=== PATIENT | male | born 1975 | race Asian ===

== ENCOUNTER 2020-03-06 16:41 | Emergency (ER) | payer OTHER, SELFPAY ==
--- NOTE | ~2020-03-06 | XR_ITS ---
EXAMINATION: XR foot LT min 3V DATE: 03/06/2020 17:27 INDICATION: Swelling and pain of the great toe TECHNIQUE: Dorsoplantar, lateral, and 2 oblique views of the left foot were obtained. COMPARISON: None. FINDINGS: No fracture is identified. 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 There appear to be small cortical erosions in the medial aspects of the first metatarsal and fir st proximal phalanx and metatarsophalangeal joint as well as at the distal aspect of the first proxim al phalanx. Medial soft tissue swelling is seen near the first metatarsophalangeal joint. IMPRESSION: 1. Osseous and soft tissue changes near the first metatarsophalangeal joint, consistent with gout. No acute osseous abnormality. Reviewed, dictated and finalized at location A. IMPRESSION: 1. Osseous and soft tissue changes near the first metatarsophalangeal joint, co nsistent with gout. No acute osseous abnormality.
--- NOTE | ~2020-03-06 | XR_ITS ---
EXAMINATION: XR foot RT min 3V DATE: 03/06/2020 17:27 INDICATION: Right great toe and foot pain TECHNIQUE: Dorsoplantar, lateral, and 2 oblique views of the right foot were obtained. COMPARISON: None. FINDINGS: No fracture is identified. 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 There are cortical erosions in the medial aspects of the first metatarsal and first proximal pha lanx at the metatarsophalangeal joint. There also appear to be subtle erosions in the anterior aspect of the distal tibia on the lateral view Medial soft tissue swelling is seen near the first metatarso phalangeal joint. IMPRESSION: 1. Osseous and soft tissue changes near the first metatarsophalangeal joint, and possibly distal tibi a, consistent with gout. No acute osseous abnormality. Reviewed, dictated and finalized at location A. IMPRESSION: 1. Osseous and soft tissue changes near the first metatarsophalangeal joint, an d possibly distal tibia, consistent with gout. No acute osseous abnormality.
[2020-03-06 16:52] VITALS: BP 137/95; PULSE 74; RESP 18; TEMP 36.9; O2SAT 96
[2020-03-06 17:27] LABS: Basophils Percent Auto 0.4 % (0.2-1.2); Eosinophils Absolute Auto 0.1 K/mm3 (0-0.3); Eosinophils Percent Auto 1.6 % (0-4.4); Hematocrit 43.8 % (42.0-52.0); Hemoglobin 15.1 g/dL (14.0-18.0); Immature Granulocyte Absolute 0.01 K/mm3 (0.00-0.031); Immature Granulocyte Percent A 0.1 % (0-0.5); Lymphocytes Absolute Auto 2.13 K/mm3 (0.9-3.2); Lymphocytes Percent Auto 30.5 % (18.3-44.2); Mean Corpuscular HGB Conc 34.5 g/dl (32-36); Mean Corpuscular Hemoglobin 30.3 pg (26-34); Mean Platelet Volume 9.3 fl (7.4-10.4); Monocytes Absolute Auto 0.6 K/mm3 (0.1-0.6); Monocytes Percent Auto 8.6 % (2.6-8.5); Neutrophils Absolute Auto 4.1 K/mm3 (1.3-6.7); Neutrophils Percent Auto 58.8 % (45.5-73.1); Platelet Count Result 314 k/mm3 (150-375); Red Blood Count 4.98 M/mm3 (4.6-6.20); Red Cell Distribution Width 11.6 % (11.5-14.5)
[2020-03-06] MEDS: KETOROLAC 30 MG/ML VIAL (*BKC) IV PUSH (17:30)
[2020-03-06 17:38] LABS: Blood Urea Nitrogen 15 mg/dL (9-20); Calcium 9.5 mg/dL (8.4-10.2); Carbon Dioxide 28 mmol/L (22-30); Chloride 100 mmol/L (98-107); Estimated CRCL calculation 76 ml/min; Estimated Glomerular Filt Rate > 60; Glucose 109 mg/dL (75-110); Potassium 4.2 mmol/L (3.4-5.0); Sodium 138 mmol/L (137-145); Uric Acid 6.6 mg/dL (3.5-8.5)
[2020-03-06 17:49] LABS: Erythrocyte Sedimentation Rate 24 mm/hr (0-20)
--- NOTE | 2020-03-06 17:55 | ED.GENADULT ---
HPI - General Adult General Chief complaint: Extremity Injury, Lower Stated complaint: bilat foot pain Time Seen by Provider: 03/06/20 16:53 History of Present Illness HPI narrative: Patient is a 44-year-old male who presents ER with bilateral foot/great toe pain. Reports he was running last week and felt pain in his midfoot on the right side. He then developed pain and swelling in his right great toe. This is similar to previous gout that he has had. Similar pain started to agitate his left great toe. He has pain with walking. He also reports that he is developed fever today with this. No chills or body aches. Denies any poor dentition or abscesses in the mouth. No skin breaks that could have introduced infection. Reports he did run in the range and may have gotten his feet wet from running through bottles but nothing obvious. No breakdown of the skin around the toes. Symptoms improve with elevation of the legs and rest. Related Data Allergies Allergy/AdvReac Type Severity Reaction Status Date / Time No Known Allergies Allergy Verified 03/06/20 17:00 Review of Systems Review of Systems: All systems reviewed & are unremarkable except as noted in HPI and below Constitutional: Constitutional: Denies chills, Reports fever(s) and Denies weakness Musculoskeletal: Musculoskeletal: Reports arthralgias and Reports joint swelling PMFSH Past Medical History Medical History (Updated 03/06/20 @ 18:26 by Matthew Cox MD) Gout Surgical History Surgical History (Updated 03/06/20 @ 17:58 by Matthew Cox MD) No pertinent past surgical history Social History Social History Smoking status: Never smoker Alcohol intake: current Gender identity (if verbalized by the patient): Male Exam Narrative: Exam Narrative: GENERAL: Well-appearing, well-nourished, and in no acute distress. HEAD: Normocephalic, atraumatic. CHEST: Clear to auscultation. No respiratory distress. HEART: Regular rate and rhythm. Normal peripheral pulses. EXTREMITIES: Focused exam bilateral lower extremity shows degenerative changes to bilateral first MTPs. There is also swelling and redness to bilateral great toes with tenderness palpation and with mobility of the great toes. There is slight midfoot tenderness with palpation over the dorsal aspect on the right. No lymphangitic streaking or overt cellulitis. SKIN: Warm, dry, no rash. NEURO: Alert and oriented x3. Course Course Emergency Course: Abdominal x-ray is consistent with gout. [place] to be bilateral gout flare. Will start on steroids as well as [place] for home. Recommend follow-up with PCP. Will give crutches to assist in bearing of weight. Vital Signs Vital signs: Vital Signs Temperature 98.5 F 03/06/20 16:52 Pulse Rate 74 03/06/20 16:52 Respiratory Rate 18 03/06/20 16:52 Blood Pressure 137/95 H 03/06/20 16:52 Pulse Oximetry 96 03/06/20 16:52 Temperature 98.5 F 03/06/20 16:52 Pulse Rate 74 03/06/20 16:52 Respiratory Rate 18 03/06/20 16:52 Blood Pressure 137/95 H 03/06/20 16:52 Pulse Oximetry 96 03/06/20 16:52 Medical Decision Making Vital Signs Vital Signs: Vital Signs Temperature 98.5 F 03/06/20 16:52 Pulse Rate 74 03/06/20 16:52 Respiratory Rate 18 03/06/20 16:52 Blood Pressure 137/95 H 03/06/20 16:52 Pulse Oximetry 96 03/06/20 16:52 Temperature 98.5 F 03/06/20 16:52 Pulse Rate 74 03/06/20 16:52 Respiratory Rate 18 03/06/20 16:52 Blood Pressure 137/95 H 03/06/20 16:52 Pulse Oximetry 96 03/06/20 16:52 Lab Data Result diagrams: 03/06/20 17:17 03/06/20 17:17 Labs: Lab Results 03/06/20 03/06/20 Range/Units 17:17 17:17 WBC 7.0 (4.5-10.0) K/mm3 RBC 4.98 (4.6-6.20) M/mm3 Hgb 15.1 (14.0-18.0) g/dL Hct 43.8 (42.0-52.0) % MCV 88.0 (80-100) fl MCH 30.3 (26-34) pg MCHC 34.5 (32-36) g/dl RDW 11.6 (11.5-14.5) % Plt Count 314
== END 2020-03-06 18:35 | disposition home or self-care (01) ==
PROVIDERS: Emergency Provider Emergency Medicine
DX: M10.9 Gout, unspecified (principal)
CPT/HCPCS: 36415; 73630; 80048; 84550; 85025; 85652; 86140; 96374; 99284; J1885

== ENCOUNTER 2025-04-29 11:02 | Emergency (ER) | payer BC, OTHER, SELFPAY ==
--- NOTE | ~2025-04-29 | CT_ITS ---
EXAMINATION: CT abdomen pelvis wo con DATE: 04/29/2025 12:02 INDICATION: Left lower quadrant TECHNIQUE: Computed tomography (CT) of the abdomen and pelvis was performed without intravenous contrast. The dose-length product was 247.70 mGy-cm. Automated exposure control and iterative reconstruction technique were employed. COMPARISON: None. FINDINGS: Lung bases unremarkable. Heart size normal. No significant pleural or pericardial effusion. There are nonobstructing bilateral renal stones. There is a distal left ureteral stone measuring 4 mm in the pelvis. No significant hydronephrosis. Bladder is decompressed. Nonobstructive bowel gas pattern. Gallbladder is present. No significant vascular abnormality. Normal appendix. No acute osseous abnormality. IMPRESSION: 1. Distal left ureteral stone measuring 4 mm. No significant hydronephrosis. 2: Nonobstructing bilateral nephrolithiasis. Reviewed, dictated and finalized at location O.
[2025-04-29 11:09] VITALS: BP 145/92; PULSE 74; RESP 16; TEMP 36.5; O2SAT 100
[2025-04-29 11:18] LABS: Hematocrit 46.6 % (42.0-52.0); Hemoglobin 15.5 g/dL (14.0-18.0); Immature Granulocyte Percent A 0.2 % (0-0.5); Lymphocytes Absolute Auto 0.69 K/mm3 (0.9-3.2); Mean Corpuscular HGB Conc 33.3 g/dl (32-36); Mean Corpuscular Hemoglobin 29.7 pg (26-34); Mean Corpuscular Volume 89.3 fl (80-100); Nucleated Red Blood Cells Absolute Auto 0.000 K/mm3 (0.0-0.012); Nucleated Red Blood Cells Perc 0.0 % (0.0-0.2); Platelet Count Result 225 k/mm3 (150-375); Red Blood Count 5.22 M/mm3 (4.6-6.20); White Blood Count 8.7 K/mm3 (4.5-10.0)
[2025-04-29 11:32] LABS: Add Urine Microscopic? YES; Appearance Urine Clear (Clear); Glucose Urine UA Negative (Negative); Leukocyte Esterase Ur Negative LEU/UL (Negative); Nitrate Urine Negative (Negative); Non Pathogenic Casts 0-2; Specific Grav Ur 1.018 (1.001-1.035)
[2025-04-29 11:38] LABS: Alanine Aminotransferase 24 U/L (6-50); Albumin Level 4.8 g/dL (3.5-5.1); Alkaline Phosphatase 85 U/L (38-126); Anion Gap 10 mmol/L (4-12); Aspartate Amino Transferase 29 U/L (17-59); Bilirubin,Total 0.8 mg/dL (0.2-1.3); Blood Urea Nitrogen 14 mg/dL (9-20); Calcium 9.9 mg/dL (8.4-10.2); Carbon Dioxide 23 mmol/L (22-30); Chloride 106 mmol/L (98-107); Estimated CRCL calculation 66 ml/min; Estimated Glomerular Filt Rate > 60; Glucose 151 mg/dL (65-110); Lipase 73 U/L (23-300); Potassium 5.3 mmol/L (3.4-5.0); Sodium 139 mmol/L (137-145); Total Protein 7.8 g/dL (6.3-8.2)
--- OUTSIDE RECORDS SUMMARY | 2025-04-29 11:41 | XMS_ITS | Clinical Summary ---
Author Organization [facility] Address [facility] [place] [address] Care Team Providers Care Sound Recordist Name Role Phone Bibiana Bangura NP Primary Care Provider [phone] Allergies No known active allergies Medications No known medications Active Problems Problem Noted Date Diagnosed Date Gout due to other secondary cause involving toe, unspecified chronicity, unspecified laterality 01/27/2019 Immunizations Immunization Administration Dates Next Due Flucelvax 2 YRS+ (Multi-Dose Vial) 07/30/2018 Social History Tobacco Use Types Packs/Day Years Used Date Smoking Tobacco: Never Smokeless Tobacco: Never Tobacco Cessation:Counseling Given: Yes Comments:The provider can provide you with more information about quitting. Alcohol Use Standard Drinks/Week Comments Yes 1 (1 standard drink = 0.6 oz pur e alcohol) Sex and Gender Information Value Date Recorded Sex Assigned at Not on file Legal Sex Male 8:45 AM CDT Gender Identity Not on file Sexual Orientation Not on file Last Filed Vital Signs Vital Sign Reading Time Taken Comments Blood Pressure 110/87 05/22/2021 8:10 AM CDT Pulse 74 05/22/2021 8:10 AM CDT Temperature 36 C (96.8 F) 05/22/2021 8:10 AM CDT Respiratory Rate 18 05/22/2021 8:10 AM CDT Oxygen Saturation 98% 05/22/2021 8:10 AM CDT Inhaled Oxygen Concentration - - Weight 64 kg (141 lb) 05/22/2021 8:10 AM CDT Height 170.2 cm (5' 7) 05/22/2021 8:10 AM CDT Body Mass Index 22.08 05/22/2021 8:10 AM CDT Plan of Treatment Health Maintenance Due Date Last Done Comments Colorectal Cancer Screening Colonoscopy ( Years) 1973 Hepatitis C 1991 DTaP, Tdap and Td Vaccines ( 1 - Tdap) 1992 Hepatitis B Vaccines (1 of 3 - 19+ 3-dose series) 1992 Annual Physical 05/22/2022 05/22/2021 Pneumococcal Vaccine: 50+ Years (1 of 1 - PCV) 2023 Zoster Vaccines (1 of 2) 2023 COVID-19 Vaccine (3 - 2023-2 5 season) 2024 12/26/2020, 12/03/2020 Meningococcal B Vaccine Aged Out No l onger eligible based on patient's age to complete this topic Meningococcal Vaccine Aged Out No otilia tessa eligible based on patient's age to complete this topic RSV Immunizations Under 20 Months Aged Out No longer eligible b ased on patient's age to complete this topic Insurance [facility] Care Teams Sound Recordist Relationship Specialty Start Date End Date Bibiana Bangura NP [address] [place] [id number] PCP - General NURSE PRACTITIONER 05/19/21
[2025-04-29] MEDS: ONDANSETRON INJ 4 MG/2 ML VIAL IV PUSH (11:50)
[2025-04-29] MEDS: SODIUM CHLORIDE 0.9% IV 1,000 ML 999 ML IV CONT (11:50)
--- NOTE | 2025-04-29 12:44 | ED.GENADULT ---
HPI - General Adult General Chief complaint: Abdominal Pain Stated complaint: ABD PAIN RAD TO FLANK Time Seen by Provider: 04/29/25 11:24 History of Present Illness HPI narrative: Patient 49-year-old gentleman presents emergency department chief complaint of abdominal pain patient reports the pain is in his left lower quadrant radiates to his back patient reports he has had some nausea but has not had vomiting. 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 Nursing and ancillary documentation was reviewed. PMFSH Past Medical History Medical History Dyslipidemia Gout Surgical History Surgical History No pertinent past surgical history Social History Social History Smoking status: Never smoker Alcohol intake: current Gender identity (if verbalized by the patient): Male Exam Narrative: GENERAL: Well-appearing, well-nourished, and in no acute distress. HEAD: Normocephalic, atraumatic. EYES: PERRLA and EOMI. ENT: Nares clear, no rhinorrhea or epistaxis. Mucous membranes moist. NECK: Supple. CHEST: Clear to auscultation. No respiratory distress. HEART: Regular rate and rhythm. No murmur heard. Normal peripheral pulses. ABDOMEN: Soft, nontender, nondistended, normal active bowel sounds. EXTREMITIES: Normal range of motion. No edema. SKIN: Warm, dry, no rash. NEURO: No focal deficits. Alert and oriented x3. PSYCH: Normal mood and affect. Course Vital Signs Vital signs: Vital Signs Temperature 36.5 C 04/29/25 11:09 Pulse Rate 74 04/29/25 11:09 Respiratory Rate 16 04/29/25 11:09 Blood Pressure 145/92 H 04/29/25 11:09 Pulse Oximetry 100 04/29/25 11:09 Oxygen Delivery Room Air 04/29/25 11:09 Temperature 36.5 C 04/29/25 11:09 Pulse Rate 74 04/29/25 11:09 Respiratory Rate 16 04/29/25 11:09 Blood Pressure 145/92 H 04/29/25 11:09 Pulse Oximetry 100 04/29/25 11:09 Oxygen Delivery Room Air 04/29/25 11:09 Medical Decision Making MDM Narrative Medical decision making narrative: Differential diagnosis includes ureterolithiasis, diverticulitis colitis, intra-abdominal infection, UTI Laboratory studies were obtained on the patient showed normal CBC CMP showed normal renal function urinalysis showed 11-[address] scan showed a 4 mm distal stone Vital Signs Vital Signs: Vital Signs Temperature 36.5 C 04/29/25 11:09 Pulse Rate 74 04/29/25 11:09 Respiratory Rate 16 04/29/25 11:09 Blood Pressure 145/92 H 04/29/25 11:09 Pulse Oximetry 100 04/29/25 11:09 Oxygen Delivery Room Air 04/29/25 11:09 Temperature 36.5 C 04/29/25 11:09 Pulse Rate 74 04/29/25 11:09 Respiratory Rate 16 04/29/25 11:09 Blood Pressure 145/92 H 04/29/25 11:09 Pulse Oximetry 100 04/29/25 11:09 Oxygen Delivery Room Air 04/29/25 11:09 Lab Data 04/29/25 11:12 04/29/25 11:12 Labs: Lab Results 04/29/25 04/29/25 Range/Units 11:12 11:21 WBC 8.7 (4.5-10.0) K/mm3 RBC 5.22 (4.6-6.20) M/mm3 Hgb 15.5 (14.0-18.0) g/dL Hct 46.6 (42.0-52.0) % MCV 89.3 (80-100) fl MCH 29.7 (26-34) pg MCHC 33.3 (32-36) g/dl RDW 12.5 (11.5-14.5) % Plt Count 225 (150-375) k/mm3 MPV 9.7 (7.4-10.4) fl Immature Gran % (Auto) 0.2 (0-0.5) % Neut % (Auto) 88.9 H (45.5-73.1) % Lymph % (Auto) 7.9 L (18.3-44.2) % Walker % (Auto) 2.7 (2.6-8.5) % Eos % (Auto) 0.1 (0-4.4) % Baso % (Auto) 0.2 (0.2-1.2) % Lymph # (Auto) 0.69 L (0.9-3.2) K/mm3 Walker # (Auto) 0.2 (0.1-0.6) K/mm3 Eos # (Auto) 0.0 (0-0.3) K/mm3 Baso # (Auto) 0.0 (0.0-0.1) K/mm3 Abs Immat Gran (auto) 0.02 (0.00-0.031) K/mm3 Absolute Neuts (auto) 7.8 H (1.3-6.7) K/mm3 Absolute Nucleated RBC 0.000 (0.0-0.012) K/mm3 Nucleated RBC % 0.0 (0.0-0.2) % Sodium 139 (137-145) mmol/L Potassium 5.3 H (3.4-5.0) mmol/L Chloride 106 (98-107) mmol/L Carbon Dioxide 23 (22-30) mmol/L Anion Gap 10 (4-12) mmol/L BUN 14 (9-20) mg/dL Creatinine 1.08 (0.7-1.3) mg/dL Estim Creat Clear Calc 66 ml/min Estimated GFR > 60 (59 - ) Glucose 151 H (65-110) mg/dL Calcium 9.9 (8.4-10.2) mg/dL Total Bilirubin 0.8 (0.2-1.3) mg/dL AST 29 (17-59) U/L ALT 24 (6-50) U/L Alkaline Phosphatase 85 (38-126) U/L Total Protein 7.8 (6.3-8.2) g/dL Albumin 4.8 (3.5-5.1) g/dL Lipase 73 (23-300) U/L Urine Color Yellow (Yellow) Urine Appearance Clear (Clear) Urine pH 5.0 (5.0-9.0) Ur Specific [place] 1.018 (1.001-1.035) Urine Protein Negative (Negative) mg/dL Urine Glucose (UA) Negative (Negative) mg/dL Urine Ketones Trace H (Negative) mg/dL Ur Blood (Man) 2+ H (Negative) Urine Nitrate Negative (Negative) Urine Bilirubin Negative (Negative) Urine Urobilinogen 0.2 (<2.0) mg/dL Leukocyte Esterase Rfl Negative (Negative) ROBERT/UL Urine RBC 11-20 H (0-2) /hpf Urine WBC 0-5 (0-3) /hpf Ur Squamous Epith Cells None seen (Few) /hpf Urine Bacteria None seen /hpf Urine Casts 0-2 Discharge Plan Discharge Clinical Impression: Ureterolithiasis Patient Disposition: Home Condition: Stable Instructions: Antibiotic Form, How to Strain Your Urine (ED), Flank Pain (ED), Ureteral Stones (ED) Patient Language: Romanian Prescriptions: New tamsulosin [Flomax] 0.4 mg capsule 0.4 mg PO DAILY Qty: 10 0RF hydrocodone-acetaminophen 5-325 mg tablet 1 tablet PO Q6H PRN (Reason: pain) 3 Days Qty: 12 0RF ondansetron 4 mg tablet,disintegrating 4 mg PO Q8H PRN (Reason: nausea and vomiting) Qty: 10 0RF Follow-up/Referrals: Jonathan Wilder MD [Physician, Urology] PHYSICIAN NOT ON STAFF,NONSTAFF [Primary Care Provider] Time of Disposition: 12:52
[2025-04-29] MEDS: TAMSULOSIN HCL 0.4 MG CAPSULE PO (13:03)
== END 2025-04-29 13:05 | disposition home or self-care (01) ==
PROVIDERS: Emergency Provider Emergency Medicine
DX: N20.1 Calculus of ureter (principal); R10.32 Left lower quadrant pain; E78.5 Hyperlipidemia, unspecified
CPT/HCPCS: 36415; 74176; 80053; 81001; 83690; 85025; 96361; 96374; 99284; A9270; J2405; J7030